=== PATIENT | male | born 1960 ===

== ENCOUNTER 2017-11-06 09:41 | Emergency (ER) | payer OTHER ==
[2017-11-06 09:57] VITALS: RESP 16; TEMP 97.8
[2017-11-06] MEDS ORDERED: Acetaminophen-Codeine 300/30 mg Tab PO STA (10:11)
[2017-11-06] MEDS ORDERED: Acetaminophen-Codeine 300/30 mg Tab ONE (10:21)
--- NOTE | 2017-11-06 10:38 | ED PDOC ---
HPI: Back Time Seen by Provider: 11/06/17 10:08 Chief Complaint (Nursing): Back Pain Chief Complaint (Provider): Left Rib Pain History Per: Patient History/Exam Limitations: no limitations Onset/Duration Of Symptoms: Days (x3) Current Symptoms Are (Timing): Still Present Additional Complaint(s): 57 year old male, with a past medical history of diabetes, presenting for evaluation of left rib pain x3 days. Patient states she fell and hit her ribs against a rail. Patient reports pain is worse on inspiration and coughing. Patient denies any shortness of breath. Past Medical History Reviewed: Historical Data, Nursing Documentation, Vital Signs Vital Signs: Last Vital Signs Temp 97.8 F 11/06/17 09:55 Pulse 89 11/06/17 09:55 Resp 16 11/06/17 09:55 BP 178/89 H 11/06/17 09:55 Pulse Ox 99 11/06/17 09:55 - Medical History PMH: Diabetes - Surgical History Surgical History: No Surg Hx - Family History Family History: States: Unknown Family Hx - Home Medications Home Medications: Ambulatory Orders Medication Instructions Recorded traMADol [Ultram] 50 mg PO Q8 #10 tab 11/06/17 - Allergies Allergies/Adverse Reactions: Allergies Allergy/AdvReac Type Severity Reaction Status Date / Time No Known Allergies Allergy Verified 11/06/17 09:55 Review of Systems ROS Statement: Except As Marked, All Systems Reviewed And Found Negative Respiratory: Negative for: Shortness of Breath Musculoskeletal: Positive for: Other (left rib pain) Physical Exam - Reviewed Nursing Documentation Reviewed: Yes Vital Signs Reviewed: Yes - Physical Exam Appears: Positive for: Non-toxic, No Acute Distress Head Exam: Positive for: ATRAUMATIC, NORMAL INSPECTION, NORMOCEPHALIC Skin: Positive for: Normal Color, Warm, Dry. Negative for: Rash Eye Exam: Positive for: EOMI, Normal appearance, PERRL Cardiovascular/Chest: Positive for: Regular Rate, Rhythm. Negative for: Chest Non Tender ((+) tenderness to left posterior lateral and lower ribs, (-) ecchymosis, (-) flail) Respiratory: Positive for: Normal Breath Sounds. Negative for: Respiratory Distress Gastrointestinal/Abdominal: Positive for: Normal Exam, Soft. Negative for: Tenderness Back: Positive for: Normal Inspection. Negative for: L CVA Tenderness, R CVA Tenderness, Vertebral Tenderness Extremity: Positive for: Normal ROM. Negative for: Tenderness, Deformity Neurologic/Psych: Positive for: Alert, Oriented. Negative for: Motor/Sensory Deficits - ECG O2 Sat by Pulse Oximetry: 99 (RA) Pulse Ox Interpretation: Normal Medical Decision Making Medical Decision Making: Plan: -X-ray left ribs -Tylenol-3 1 tab PO -Ultram 50mg PO -Reevaluation Scribe Attestation: Documented by Barrera Robertson, acting as a scribe for Abebe Del Rio MD. Provider Scribe Attestation: All medical record entries made by the Scribe were at my direction and personally dictated by me. I have reviewed the chart and agree that the record accurately reflects my personal performance of the history, physical exam, medical decision making, and the department course for this patient. I have also personally directed, reviewed, and agree with the discharge instructions and disposition. Disposition - Clinical Impression Clinical Impression: Rib fracture - Patient ED Disposition Is Patient to be Admitted: No Counseled Patient/Family Regarding: Studies Performed, Diagnosis, Need For Followup, Rx Given - Disposition Referrals: [facility] [Outside] Disposition: Routine/Home Disposition Time: 10:48 Condition: FAIR Prescriptions: traMADol [Ultram] 50 mg PO Q8 #10 tab Instructions: Rib Fractures in Adults Forms: [facility] ([place])
[2017-11-06 11:00] VITALS: BP 160/85; PULSE 75; O2SAT 95
--- NOTE | 2017-11-06 11:10 | RAD ---
Date of service: 11/06/2017 PROCEDURE: Radiographs of the Chest and Left Ribs. HISTORY: trauma COMPARISON: Correlations made to chest radiograph dated 02/04/2012. TECHNIQUE: Frontal radiograph of the chest and multiple oblique radiographs of the left ribs were obtained. FINDINGS: LEFT RIBS: No fracture or focal lesion visualized. LUNGS: Clear. PLEURA: Stable elevation of the right hemidiaphragm. No pneumothorax or pleural fluid. CARDIOVASCULAR: Atherosclerotic aortic calcifications. Cardiomediastinal silhouette stably enlarged. OTHER FINDINGS: None. IMPRESSION: Unremarkable radiographs of the chest and left ribs. No left rib fracture.
== END 2017-11-06 10:58 | disposition home or self-care (01) ==
LOC: H.ER 09:41
DX: S22.39XA Fracture of one rib, unspecified side, initial encounter for closed fracture (principal); W19.XXXA Unspecified fall, initial encounter; Y93.9 Activity, unspecified